=== PATIENT | male | born 1940 | race Two or more races ===

== ENCOUNTER 2022-06-29 16:06 | Emergency (ER) | payer OTHER ==
[~2022-06-29] VITALS: Ht 152.4 cm; Wt 70.3 kg
[2022-06-29 16:41] VITALS: BP 126/86
[2022-06-29 17:18] LABS: Basophils # (auto) 0 10 ^3/uL (0-0.2); Eosinophils # (auto) 0 10 ^3/uL (0-0.8); Eosinophils % (auto) 0.2 % (0.0-7.0); Lymphocytes # (auto) 0.7 10 ^3/uL (0.4-5.4); Monocytes # (auto) 0.6 10 ^3/uL (0-1.3)
[2022-06-29 17:19] LABS: Basophils % (auto) 0.2 % (0.0-2.0); Hematocrit 45.2 % (41.0-53.0); Mean Corpuscular Hemoglobin 34.3 pg (28.0-32.0); Mean Corpuscular Hgb Conc. 33.3 g/dL (32.0-36.0); Mean Corpuscular Volume 102.9 fL (80.0-100.0); Monocytes % (auto) 8.2 % (0.0-12.0); Neutrophils # (auto) 5.7 10 ^3/uL (1.6-8.6); Neutrophils % (auto) 81.4 % (37.0-80.0); Red Blood Cells 4.39 10^6/uL (4.5-5.90); Red Cell Distribution Width 13.7 % (11.8-14.3)
[2022-06-29 17:31] LABS: Urine Bacteria NONE SEEN /hpf (None Seen); Urine Blood Negative /uL (Negative); Urine Mucus FEW (None Seen); Urine Specific Gravity 1.032 (1.001-1.035); Urine WBC 6 /hpf (0 - 3)
[2022-06-29 17:41] LABS: Albumin 4.1 g/dL (3.4-5.0); Calcium 9.4 mg/dL (8.5-10.1); Potassium 3.7 mmol/L (3.5-5.1)
[2022-06-29 17:43] LABS: BUN/Creatinine Ratio 22.9
[2022-06-29 17:46] LABS: Bilirubin, Total 1.6 mg/dL (0.2-1.0); Total Protein 8.7 g/dL (6.4-8.2)
== END 2022-06-30 03:42 | disposition left against medical advice (07) ==
LOC: ER 16:06
DX: R10.9 Unspecified abdominal pain (principal); R11.2 Nausea with vomiting, unspecified; Z53.21 Procedure and treatment not carried out due to patient leaving prior to being seen by health care provider
CPT/HCPCS: 36415; 80053; 81001; 85025; 93005

== ENCOUNTER 2025-01-13 10:21 | Inpatient (IN) | payer OTHER, MEDICAID ==
[~2025-01-13] VITALS: Ht 160 cm; Wt 67.3 kg
--- NOTE | 2025-01-13 13:23 | DVH ---
Procedure: CT HEAD WITHOUT CONTRAST Study Date and Requested Time: 01/13/2025 12:46 PM History: fall 5 days ago Comparison: None Dose: CTDI: 54.6 mGy DLP: 966.84 mGycm Technique: Multiplanar images obtained through the brain without intravenous contrast. Findings: Ognq-ud-havnrrkb diffuse brain atrophy. Yhjy-kf-krktmuwu chronic small vessel ischemic changes. 4 mm hypodensity over the right caudate head No hemorrhages, masses, mass effect, midline shift, herniation or cytotoxic edema following a large v ascular territory. No intra-axial or extra-axial fluid collections. No evidence of hydrocephalus. The basal cisterns are patent. The pituitary gland, sella and parasellar regions are unremarkable. The cerebellar tonsils are in nor mal position. The cerebellum is unremarkable. Right ocular postsurgical changes and bilateral lens replacement. Otherwise, orbits and globes are u nremarkable. There is mucoperiosteal thickening of the inferior frontal sinuses, ethmoid air cells, s phenoid sinuses and mastoid sinuses. The mastoids are clear. There are no worrisome calvarial lesion s. Moderate atherosclerotic calcification of the carotid siphons. Impression: 4 mm hypodensity over the right caudate head which may represent lacunar infarct of unknown chronicit y. If there is concern for acute infarct, MRI should be considered for further evaluation. No intracranial hemorrhage. Mild pansinus disease.
[2025-01-13 13:54] LABS: Basophils # (auto) 0 10 ^3/uL (0-0.2); Basophils % (auto) 0.5 % (0.0-2.0); Hematocrit 36.8 % (41.0-53.0); Hemoglobin 12.6 g/dL (13.5-17.5); Monocytes # (auto) 0.4 10 ^3/uL (0-1.3); Nucleated Red Blood Cells % 0.1 %; Red Cell Distribution Width 13.7 % (11.8-14.3); White Blood Cell 4.6 10^3/uL (4.4-10.8)
[2025-01-13 13:57] LABS: Eosinophils # (auto) 0.1 10 ^3/uL (0-0.8); Lymphocytes % (auto) 22.3 % (10.0-50.0); Mean Corpuscular Hemoglobin 35.1 pg (28.0-32.0); Mean Corpuscular Hgb Conc. 34.3 g/dL (32.0-36.0); Mean Corpuscular Volume 102.2 fL (80.0-100.0); Monocytes % (auto) 8.4 % (0.0-12.0); Neutrophils % (auto) 65.8 % (37.0-80.0); Platelet Count (auto) 173 10^3/uL (140-450)
[2025-01-13 14:09] LABS: Alanine Aminotransferase 15 U/L (7-40); Albumin 4.1 g/dL (3.2-4.8); Alkaline Phosphatase 72 U/L (46-116); Anion Gap 8 (5-15); Aspartate Aminotransferase 21 U/L (13-40); BUN/Creatinine Ratio 25.8 (10.0-20.0); Calcium 9.3 mg/dL (8.7-10.4); Carbon Dioxide 27 mmol/L (20-31); Chloride 106 mmol/L (98-107); Glucose 101 mg/dL (74-106); Potassium 4.6 mmol/L (3.5-5.1); Sodium 141 mmol/L (136-145); Total Protein 7.2 g/dL (5.7-8.2)
[2025-01-13 14:10] LABS: Bilirubin, Total 0.8 mg/dL (0.2-1.0)
[2025-01-13 14:14] LABS: Blood Urea Nitrogen 24 mg/dL (9-23)
--- NOTE | 2025-01-13 14:40 | ED.PDOC ---
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 Denies persistent nausea Denies vomiting Denies taking any blood thinner medication Denies vision/hearing changes Denies focal loss of strength/sensation or changes in speech Chief Complaint: Head Injury Time Seen by MD: 10:41 Primary Care Provider: NONE Reviewed Notes: Nurses Notes, Medications, Allergies Information Source: Patient Mode of Arrival: Ambulatory Past Medical History PAST MEDICAL HISTORY: Denies Family History Family History: Reviewed,noncontributory to illness Social History Smoker: Non-Smoker Alcohol: Denies ETOH Use Drugs: Denies Drug Use All Other Systems: Reviewed and Negative (per hpi) Physical Exam General Appearance: No Apparent Distress, Normal HEENT: Head (Normocephalic atraumatic), Normal ENT Inspection, Pharynx Normal, TMs Normal Neck: Full Range of Motion, Non-Tender, Normal, Normal Inspection Respiratory: Chest Non-Tender, Lungs Clear, No Accessory Muscle Use, No Respiratory Distress, Normal Breath Sounds Cardiovascular: No Edema, No JVD, No Murmur, No Gallop, Normal Peripheral Pulses, Regular Rate/Rhythm Breast Exam: Deferred Gastrointestinal: No Organomegaly, Non Tender, No Pulsatile Mass, Normal Bowel Sounds, Soft Genitalia: Deferred Pelvic: Deferred Rectal: Deferred Extremities: No calf tenderness, Normal capillary refill, Normal inspection, Normal range of motion, Non-tender, No pedal edema Musculoskeletal : Apperance: Normal Neurologic: Alert, pourer buggy ladle II-XII nml as Tested, No Motor Deficits, Normal Affect, Normal Mood, No Sensory Deficits Cerebellar Function: Normal Reflexes: Normal Skin: Dry, Normal Color, Warm Lymphatic: No Adenopathy Was a procedure done? Was a procedure done?: No Differential Diagnosis (SZ) Headache: Closed Head Injury, Mass Lesion, Other X-Ray, Labs, Meds, VS Vital Signs Date Time Temp Pulse Resp B/P (MAP) Pulse Ox O2 Delivery O2 Flow Rate FiO2 01/13/25 12:21 97.8 78 16 130/73 (92) 94 97.8 01/13/25 12:20 125 16 95 Room Air 01/13/25 10:31 97.6 78 16 130/73 (92) 94 97.6 Lab Test 01/13/25 14:40 01/13/25 13:45 Range/Units Troponin I High Sensitivity 5 5 </=54 ng/L Triglycerides Level 76 < 150 mg/dL Cholesterol Level 165 < 200 mg/dL LDL Cholesterol 106 H < 100 mg/dL HDL Cholesterol 48 40-59 mg/dL White Blood Count 4.6 4.4-10.8 10^3/uL Red Blood Count 3.60 L 4.5-5.90 10^6/uL Hemoglobin 12.6 L 13.5-17.5 g/dL Hematocrit 36.8 L 41.0-53.0 % Mean Corpuscular Volume 102.2 H 80.0-100.0 fL Mean Corpuscular Hemoglobin 35.1 H 28.0-32.0 pg Mean Corpuscular Hemoglobin Concent 34.3 32.0-36.0 g/dL Red Cell Distribution Width 13.7 11.8-14.3 % Platelet Count 173 140-450 10^3/uL Mean Platelet Volume 6.6 L 6.9-10.8 fL Neutrophils (%) (Auto) 65.8 37.0-80.0 % Lymphocytes (%) (Auto) 22.3 10.0-50.0 % Monocytes (%) (Auto) 8.4 0.0-12.0 % Eosinophils (%) (Auto) 3.0 0.0-7.0 % Basophils (%) (Auto) 0.5 0.0-2.0 % Neutrophils # (Auto) 3.0 1.6-8.6 10 ^3/uL Lymphocytes # (Auto) 1.0 0.4-5.4 10 ^3/uL Monocytes # (Auto) 0.4 0-1.3 10 ^3/uL Eosinophils # (Auto) 0.1 0-0.8 10 ^3/uL Basophils # (Auto) 0 0-0.2 10 ^3/uL Nucleated Red Blood Cells 0.1 % Sodium Level 141 136-145 mmol/L Potassium Level 4.6 3.5-5.1 mmol/L Chloride Level 106 98-107 mmol/L Carbon Dioxide Level 27 20-31 mmol/L Anion Gap 8 5-15 Blood Urea Nitrogen 24 H 9-23 mg/dL Creatinine 0.93 0.700-1.30 mg/dL Glomerular Filtration Rate Calc 80 >90 mL/min BUN/Creatinine Ratio 25.8 H 10.0-20.0 Serum Glucose 101 74-106 mg/dL Calcium Level 9.3 8.7-10.4 mg/dL Total Bilirubin 0.8 0.2-1.0 mg/dL Aspartate Amino Transferase (AST) 21 13-40 U/L Alanine Aminotransferase (ALT) 15 7-40 U/L Alkaline Phosphatase 72 46-116 U/L Total Protein 7.2 5.7-8.2 g/dL Albumin 4.1 3.2-4.8 g/dL PATIENT: CHIQUITA BROWNOACCT: [id number]: [id number] : 1940 LOC: ER ROOM / BED: / AGE / SEX: 84 / M ADM STATUS: REG ER SERVICE 1245 ORDERING PHYSICIAN: BARAK HUNT NP PROCEDURE(s): HWOCT - HEAD WITHOUT CONTRAST REASON: fall 5 days ago ORDER NUMBER(s): [id number], ACCESSION NUMBER(s): [id number] Procedure: CT HEAD WITHOUT CONTRAST Study Date and Requested Time: 01/13/2025 12:46 PM History: fall 5 days ago Comparison: None Dose: CTDI: 54.6 mGy DLP: 966.84 mGycm Technique: Multiplanar images obtained through the brain without intravenous contrast. Findings: Mttt-sb-icyrirjn diffuse brain atrophy. Zuxg-vb-wrobagjb chronic small vessel ischemic changes. 4 mm hypodensity over the right caudate head No hemorrhages, masses, mass effect, midline shift, herniation or cytotoxic edema following a large vascular territory. No intra-axial or extra-axial fluid collections. No evidence of hydrocephalus. The basal cisterns are patent. The pituitary gland, sella and parasellar regions are unremarkable. The cerebellar tonsils are in normal position. The cerebellum is unremarkable. Right ocular postsurgical changes and bilateral lens replacement. Otherwise, orbits and globes are unremarkable. There is mucoperiosteal thickening of the inferior frontal sinuses, ethmoid air cells, sphenoid sinuses and mastoid sinuses. The mastoids are clear. There are no worrisome calvarial lesions. Moderate atherosclerotic calcification of the carotid siphons. Impression: 4 mm hypodensity over the right caudate head which may represent lacunar infarct of unknown chronicity. If there is concern for acute infarct, MRI should be considered for further evaluation. No intracranial hemorrhage. Mild pansinus disease. ATED BY: JULIANNE GREEN DO DICTATED DATE/TIME: 01/13/25 1320 SIGNED BY: JULIANNE GREEN DO SIGNED DATE/TIME: 01/13/251319 CC: X-Ray, Labs, Meds, VS Comment The patient presents with s/s consistent with symptoms which may represent lacunar infarct of unknown chronicity The patient's workup reveals that the patient needs further evaluation and/or treatment for the above medical conditions. Patient verbalized understanding of the above and is awaiting further evaluation by the admitting service. Impression: 4 mm hypodensity over the right caudate head which may represent lacunar infarct of unknown chronicity. If there is concern for acute infarct, MRI should be considered for further evaluation. No intracranial hemorrhage. Labs ordered and WBC within normal limits, hemoglobin 12.6, lymphocytes reassuring, creatinine within normal limits, EGFR 80, serum glucose 101, AST ALT reassuring, troponin 5 pending 2nd trop. EKG: SR, RBB, inferior infarct, age indeterminate Time of 1ST Reevaluation: 14:38 Reevaluation 1ST: Improved Patient Education/Counseling: Diagnosis, Treatment Family Education/Counseling: Diagnosis, Treatment Departure 1 Departure Time of Disposition: 14:40 Impression: Primary Impression: Lacunar infarction Additional Impression: Right bundle branch block (RBBB) Disposition: 09 ADMITTED INPATIENT Condition: Guarded e-Prescriptions No Active Prescriptions or Reported Meds Critical Care Note Critical Care Time?: No Stability Stability form required: No Heart Score Heart Score: Heart Score Response (Comments) Value History N/A 0 EKG N/A 0 Age N/A 0 Risk Factors N/A 0 Troponin N/A 0 Total 0 BARAK HUNT NP Jan 13, 2025 14:40
[2025-01-13] MEDS ORDERED: HYDROcodone-ACET 5/325MG TAB PO PRN (16:15)
[2025-01-13] MEDS ORDERED: MORPHINE SULFATE INJ 2 MG/ml SYRG IV PRN (16:15)
[2025-01-13] MEDS ORDERED: DOCUSATE SOD 100 MG CAP PO PRN (16:15)
[2025-01-13] MEDS ORDERED: ACETAMINOPHEN 325 MG TAB PO PRN (16:15)
[2025-01-13] MEDS ORDERED: ONDANSETRON HCL 4 MG/2 ML VIAL IV PRN (16:15)
[2025-01-13] MEDS ORDERED: NITROGLYCERIN 0.4 MG SL TAB SL PRN (16:15)
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
[2025-01-13] MEDS: ASPirin 81 mg TAB PO ONE (17:25)
--- NOTE | 2025-01-13 17:47 | DVH ---
EXAMINATION: MRI BRAIN HEAD WO CONTRAST INDICATION: Lacunar infarction COMPARISON: None TECHNIQUE: Multiplanar, multisequence magnetic resonance imaging of the brain was performed without the use of i ntravenous contrast. FINDINGS: There is generalized cortical atrophy. There is no evidence for an acute infarct. However there is increased signal on diffusion-weighted imaging in the cortical spinal tracts which i s nonspecific but is seen in cases of ALS. There are generalized degenerative changes increased perivascular spaces Internal auditory canals and mastoid air cells are normal. There is sinus disease involving the maxi llary sinuses in the ethmoid air cells to a lesser extent frontal air cells. There are no midline shifts or focal mass effects there is evidence for nonspecific white matter dise ase involving the centrum semiovale bilaterally. I do not see evidence for an acute lacunar infarct hippocampal structures are symmetric. IMPRESSION: Generalized cortical atrophy and also generalized nonspecific white matter disease.There is also evid ence for Increased signal on diffusion-weighted imaging involving the cortical spinal tracts which is nonspeci fic finding but is seen in cases of ALS. Is not specific to ALS however. There is sinus disease involving the maxillary and ethmoid sinuses.
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
[2025-01-13] MEDS: SODIUM CHLOR 0.9% PF (SALINE LOCK) 10ML VIAL/SYR IV SCH (22:00)
[2025-01-13 22:32] LABS: Triglycerides 76 mg/dL (< 150)
[2025-01-13 22:33] LABS: LDL Cholesterol 106 mg/dL (< 100)
[2025-01-13 22:34] LABS: Cholesterol 165 mg/dL (< 200); HDL Cholesterol 48 mg/dL (40-59)
[2025-01-13 22:40] VITALS: BP 142/74; PULSE 62; RESP 16; RESP 18; TEMP 98.3; O2SAT 98
--- NOTE | 2025-01-13 22:50 | DVH ---
Carotid Duplex Clinical History: CVA Comparison: None Technique: Duplex Doppler evaluation of the extracranial carotid and vertebral arteries including color Doppler and spectral/pulsed waveform analysis was performed. Findings: RIGHT SIDE: No significant plaque noted. The peak systolic velocities are 62 cm/s in the CCA, 79 cm/s in the ICA. The ICA/CCA ratio is 1.3. The external carotid artery is patent with peak systolic velocity of 82 cm/s proximally. There is appropriate antegrade flow in the right vertebral artery. LEFT SIDE: No significant plaque noted. The peak systolic velocities are 71 cm/s in the CCA, 96 cm/s in the ICA. The ICA/CCA ratio is 1.4. The external carotid artery is patent with peak systolic velocity of 96 cm/s proximally. There is appropriate antegrade flow in the left vertebral artery. IMPRESSION: No evidence of hemodynamically significant carotid stenosis. Reference: Radiology 2003; 229:340-346 Normal ICA PSV is <125 cm/sec and no plaque or intimal thickening is visible sonographically additional criteria include ICA/CCA PSV ratio <2.0 and ICA EDV <40 cm/sec <50% ICA stenosis ICA PSV is <125 cm/sec and plaque or intimal thickening is visible sonographically additional criteria include ICA/CCA PSV ratio <2.0 and ICA EDV <40 cm/sec 50-69% ICA stenosis ICA PSV is 125-230 cm/sec and plaque is visible sonographically additional criteria include ICA/CCA PSV ratio of 2.0-4.0 and ICA EDV of 40-100 cm/sec 70% ICA stenosis but less than near occlusion ICA PSV is >230 cm/sec and visible plaque and luminal narrowing are seen at barney-scale and color Dopp ler ultrasound (the higher the Doppler parameters lie above the threshold of 230 cm/sec, the greater the likelihood of severe disease) additional criteria include ICA/CCA PSV ratio >4 and ICA EDV >100 cm/sec
[2025-01-14] VITALS (8 sets, daily range): BP systolic 126–145; BP diastolic 71–83; PULSE 56–76; RESP 14–18; TEMP 97.4–98.1; O2SAT 97–99
[2025-01-14 08:34] LABS: Basophils # (auto) 0 10 ^3/uL (0-0.2); Basophils % (auto) 0.3 % (0.0-2.0); Eosinophils # (auto) 0.2 10 ^3/uL (0-0.8); Eosinophils % (auto) 3.9 % (0.0-7.0); Hematocrit 35.3 % (41.0-53.0); Hemoglobin 12.1 g/dL (13.5-17.5); Lymphocytes # (auto) 0.9 10 ^3/uL (0.4-5.4); Lymphocytes % (auto) 17.7 % (10.0-50.0); Mean Corpuscular Hemoglobin 35.1 pg (28.0-32.0); Mean Corpuscular Hgb Conc. 34.3 g/dL (32.0-36.0); Mean Corpuscular Volume 102.3 fL (80.0-100.0); Monocytes # (auto) 0.5 10 ^3/uL (0-1.3); Monocytes % (auto) 8.8 % (0.0-12.0); Neutrophils # (auto) 3.7 10 ^3/uL (1.6-8.6); Neutrophils % (auto) 69.3 % (37.0-80.0); Platelet Count (auto) 163 10^3/uL (140-450); Red Blood Cells 3.45 10^6/uL (4.5-5.90); Red Cell Distribution Width 13.8 % (11.8-14.3); White Blood Cell 5.3 10^3/uL (4.4-10.8)
[2025-01-14 08:55] LABS: Alanine Aminotransferase 10 U/L (7-40); Albumin 3.9 g/dL (3.2-4.8); Alkaline Phosphatase 63 U/L (46-116); Anion Gap 9 (5-15); Aspartate Aminotransferase 16 U/L (13-40); BUN/Creatinine Ratio 25.6 (10.0-20.0); Calcium 9.2 mg/dL (8.7-10.4); Carbon Dioxide 25 mmol/L (20-31); Glucose 94 mg/dL (74-106); Potassium 4.1 mmol/L (3.5-5.1); Sodium 141 mmol/L (136-145); Total Protein 6.8 g/dL (5.7-8.2)
[2025-01-14 08:57] LABS: Blood Urea Nitrogen 23 mg/dL (9-23); Chloride 107 mmol/L (98-107)
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
[2025-01-14] MEDS: ASPirin 81 mg TAB PO SCH (11:14)
--- NOTE | 2025-01-14 12:16 | DVH ---
EXAM: XY R FOOT 3 VIEW XRAY DATE OF SERVICE: 01/14/2025 10:59 AM ORDERING PHYSICIAN: KIMANI CHRISTIAN REASON FOR EXAM: swelling TECHNIQUE: 3 views of the right foot COMPARISON: None FINDINGS: Dorsal forefoot soft tissue swelling. No radiographic evidence of the acute fracture. Smal l plantar calcaneal spur. IMPRESSION: 1. No radiographic evidence of an acute osseous abnormality. End of Report
--- NOTE | 2025-01-14 13:07 | DVH ---
EXAM: XY R ANKLE 3 VIEW CLINICAL INDICATION: swelling TECHNIQUE: XY R ANKLE 3 VIEW Comparison: None FINDINGS/IMPRESSION: There is no evidence of acute fracture or dislocation. Soft tissue swelling overlying the malleoli The alignment is anatomical. There is no radiopaque foreign body.
[2025-01-14] MEDS: ATORVASTATIN 20 MG TAB PO SCH (21:18)
--- NOTE | 2025-01-14 23:25 | DVHPN2 ---
Progress Note - Dictate Date Seen: Jan 14, 2025 Medical Necessity Reason Pt with a Central, PICC or Fol: No Subjective is a 84 years old right-handed gentleman with a history of right eye blindness, left eye glaucoma, he came to the hospital with a chief complaint of headache, status post fall. I have seen and examined the patient, talked to his nurse, the patient was doing fine, no new complaints At this time, he is alert and fully oriented, he and his son provided the following history About 1.5 weeks ago, when he was walking along side walk, he fell down to the dirt, and bumped his head, without loss of consciousness, he was able to get up and returned home, and since then he has constant nonprogressive pain in the right parietal/occipital head region. He denies new focal weakness numbness He was no history of stroke/focal weakness numbness, but his CT showed evidence of right caudate nuclear chronic infarct, I saw evidence suggestive of chronic lacunar stroke in the same area WBC/HB/PLT/MCV, 01/13/2025: 4.6/12.6/173/102 CMP, 01/13/2025: Unremarkable TG/HDL/LDL/HDL, 01/13/2025: 76/165/106/49 Carotid Doppler, 01/13/25: No evidence of hemodynamically significant carotid stenosis CT head, 01/13/2025: 4 mm hypodensity over the right caudate head which may represent lacunar infarct of unknown chronicity. If there is concern for acute infarct, MRI should be considered for further evaluation. No intracranial hemorrhage. Mild pansinus disease. MRI head, 01/13/2025: Generalized cortical atrophy and also generalized nonspecific white matter disease.There is also evidence for Increased signal on diffusion-weighted imaging involving the cortical spinal tracts which is nonspecific finding but is seen in cases of ALS. Is not specific to ALS however. There is sinus disease involving the maxillary and ethmoid sinuses vital signs Vital Sign Date Time Temp Pulse Resp B/P (MAP) Pulse Ox O2 Delivery O2 Flow Rate FiO2 01/14/25 21:00 97.8 69 17 141/76 (97) 97 97.8 01/14/25 08:00 Room Air* 0 21 Total Intake and Output 01/13/25 01/13/25 01/14/25 15:00 23:00 07:00 Intake Total 220 ml Output Total 400 ml Balance -180 ml medications Current Medications Medications Dose Ordered Sig/Chaitanya Route Start Time Stop Time Status Last Admin Dose Admin Sodium Chloride 10 ml Q8HR IV 01/13/25 22:00 01/14/25 21:18 10 ML Acetaminophen/ Hydrocodone Bitart 1 tab Q4HP PRN PO 01/13/25 16:15 Ondansetron HCl 4 mg Q4HP PRN IV 01/13/25 16:15 Docusate Sodium 100 mg BIDPRN PRN PO 01/13/25 16:15 Acetaminophen 650 mg Q6HP PRN PO 01/13/25 16:15 Nitroglycerin 0.4 mg Q5MINP PRN SL 01/13/25 16:15 Morphine Sulfate 2 mg Q30M PRN IV 01/13/25 16:15 Aspirin 81 mg DAILY PO 01/14/25 10:00 01/14/25 11:14 81 MG Atorvastatin Calcium 10 mg HS PO 01/14/25 22:00 01/14/25 21:18 10 MG objective General: the patient is well developed and nourished. No acute distress. MENTAL STATUS: Awake and alert. Oriented to person, place, time and general circumstances. Able to give personal history. SPEECH, LANGUAGE, HIGHER CORTICAL FUNCTION: no aphasia or dysathria. CRANIAL NERVES: Intact visual parikh to confrontation. He can see a little bit lights through the right eye. Pupils leftl, round and reactive. Right corneal is cloudy. EOMs full and conjugate. No nystagmus. Facial sensation intact in all three divisions bilaterally. Mandibular strength intact. Facial muscles symmetrical and strength intact. SENSATION: Sensation to touch and pinprick is normal. MOTOR: Normal tone in the upper and lower extremity. Normal muscle bulk. No fasciculations. No abnormal movements or posturing. Muscle strength of the major groups in the extremities is 5/5. REFLEXES: Deep tendon reflexes are symmetrical. No pathological reflexes. CEREBELLAR/COORDINATION: Finger to nose ais normal bilaterally. GAIT/STATION: deferred laboratory and microbiology Laboratory Tests 01/14/25 07:28 Test 01/14/25 07:28 Range/Units Serum Glucose 94 74-106 mg/dL Problem List Chronic asymptomatic lacunar infarct Headache secondary to head trauma Fall Right eye blindness Assessment/Plan Monitoring Supportive treatment Telemetry Echocardiogram Aspirin 81 mg daily Lipitor 20 mg daily Up to chair Physical therapy This medical document was created using an electronic medical record system with [employer] computerized dictation system. Although this document has been carefully reviewed, there may still be some phonetic and typographical errors. These areas are purely typographical due to imperfections of the software programs, and do not reflect any compromise in the patient's medical care. Prognosis poor Plan discussed with: Patient, Other CANDACE ROMERO MD Jan 14, 2025 23:25
[2025-01-15] VITALS (8 sets, daily range): BP systolic 102–131; BP diastolic 64–75; PULSE 55–80; RESP 17–19; TEMP 97.8–98.8; O2SAT 97–99
--- NOTE | 2025-01-15 08:47 | ECG ---
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
[2025-01-15] MEDS ORDERED: guaiFENesin-DM 100/10mg/5ml SYR PO PRN (10:15)
--- NOTE | 2025-01-15 10:20 | DVHPN2 ---
Subjective He complains of dry cough today He said he had it for 3 days No other complaints The echocardiogram is still pending Changes from previous H/P or p: Changes Eyes: No Pain, No Vision change, No Conjunctivae inflammation, No Eyelid inflammation, No Other, No Redness ENT: No Ear pain, No Ear discharge, No Nose pain, No Nose discharge, No Nose congestion, No Mouth pain, No Mouth swelling, No Throat pain, No Throat swelling, No Other Cardiovascular: No Chest Pain, No Palpitations, No Orthopnea, No Paroxysmal Noc. Dyspnea, No Edema, No Lt Headedness, No Other Respiratory: No Cough, No Dry, No Shortness of breath, No SOB with excertion, No Wheezing, No Hemoptysis, No Pleuritic Pain, No Sputum, No Other Gastrointestinal: No Nausea, No Vomiting, No Abdominal Pain, No Diarrhea, No Constipation, No Melena, No Hematochezia, No Other Genitourinary: No Dysuria, No Frequency, No Incontinence, No Hematuria, No Retention, No Other Musculoskeletal: No other, No neck pain, No shoulder pain, No arm pain, No back pain, No hand pain, No leg pain, No foot pain Skin: No Rash, No Lesions, No Jaundice, No Bruising, No Other Objective Vitals Vital Signs Date Time Temp Pulse Resp B/P (MAP) Pulse Ox O2 Delivery O2 Flow Rate FiO2 01/15/25 08:32 98.8 55 19 124/71 (88) 98 98.8 01/14/25 20:00 Room Air* 0 21 Intake/Output Intake and Output 01/15/25 07:00 Intake Total 1570 ml Output Total 300 ml Balance 1270 ml Intake Oral 1570 ml Output Urine Total 300 ml # Voids 5 # Bowel Movements 1 General Appearance: Alert, Oriented X3, Cooperative Lungs: Clear to auscultation, Normal air movement Cardiovascular: Regular rate, Normal S1, Normal S2 Abdomen: Normal bowel sounds, Soft, No tenderness Extremities: No edema Medications Current Medications Medications Dose Ordered Sig/Chaitanya Route Start Time Stop Time Status Last Admin Dose Admin Sodium Chloride 10 ml Q8HR IV 01/13/25 22:00 01/15/25 05:30 10 ML Acetaminophen/ Hydrocodone Bitart 1 tab Q4HP PRN PO 01/13/25 16:15 Ondansetron HCl 4 mg Q4HP PRN IV 01/13/25 16:15 Docusate Sodium 100 mg BIDPRN PRN PO 01/13/25 16:15 Acetaminophen 650 mg Q6HP PRN PO 01/13/25 16:15 Nitroglycerin 0.4 mg Q5MINP PRN SL 01/13/25 16:15 Morphine Sulfate 2 mg Q30M PRN IV 01/13/25 16:15 Aspirin 81 mg DAILY PO 01/14/25 10:00 01/15/25 10:03 81 MG Atorvastatin Calcium 10 mg HS PO 01/14/25 22:00 01/14/25 21:18 10 MG Guaifenesin/ Dextromethorphan 10 ml Q4HP PRN PO 01/15/25 10:15 UNV Laboratory Results Laboratory Tests 01/14/25 07:28 Assessment/Plan Assessment/Plan Chronic asymptomatic lacunar infarct Headache due to head trauma Status post a fall Right eye blindness Right ankle swelling Plan Aspirin Lipitor Echocardiogram is pending MRI showed no stroke Carotid Doppler is negative Neurology consult Physical therapy evaluation X-ray of the right ankle ankle x-ray three-view Monitor closely 01/15/2025: Old stroke: Continue aspirin 81 mg a day Dyslipidemia: Lipitor 10 mg daily Status post fall and headache Right eye blindness, old Bilateral lower extremity edema right more than left, rule out CHF, echo is pending Workup with the MRI and carotid Doppler was negative Cough: Check chest x-ray and influenza and COVID Check BNP Plan discussed with: Patient My Orders Orders - KIMANI CHRISTIAN MD Procedure Category Date Status Time R Foot 3 View Xray XY 01/14/25 Resulted 10:38 R Ankle 3 View XY 01/14/25 Resulted 10:40 Pt Request For Service PT 01/14/25 Logged 10:51 Guaifenesin-Dextromet PHA 01/15/25 Logged Liquid (Robitussin 10:15 Chest Portable XY 01/15/25 Verified 10:16 Covid19 Antigen [facility] 01/15/25 Verified Rapid Influenza A&B LAB 01/15/25 Verified 10:16 Date of Service: Jan 15, 2025 Billing Provider: KIMANI CHRISTIAN MD Common Visit Codes: NOT BILLABLE KIMANI CHRISTIAN MD Jan 15, 2025 10:20
--- NOTE | 2025-01-15 11:43 | DVH ---
INDICATION: cough TECHNIQUE: Frontal view of the chest. COMPARISON: None FINDINGS: . The heart and mediastinal contours are grossly unremarkable. There is no evidence of pleural disea se. The lungs are clear. The bony structures of the chest are intact without fracture. IMPRESSION: 1. No evidence of acute disease.
[2025-01-15 12:43] LABS: COVID19 ANTIGEN SOFIA FIA NEGATIVE (NEGATIVE); Rapid Influenza A Negative (Negative); Rapid Influenza B Negative (Negative)
--- NOTE | 2025-01-15 16:10 | DVHINCON2 ---
Date Seen: Jan 15, 2025 Referring Physician MD Carmencita Reason for Consultation Edema History of Present Illness This is a pleasant Korean-speaking 84-year-old male patient who presents to emergency room status post mechanical fall. The patient reports he was walking in the street and suddenly tripped and fell, hitting his head. Initially, he did not go to the emergency room. The patient reports waiting two days before being evaluated. Cardiology has been consulted at this time for edema. Initial twelve lead electrocardiogram reveals normal sinus rhythm with right branch block and artifact. The patient denies any cardiac symptoms. Initial troponin level was negative. Initial BNP level of 58.76pg/mL. Significant past medical history includes right eye blindness. The patient denies any other history. The patient mentions that he has experienced bilateral lower extremity edema for the last 12 years. Past Medical History Past medical history reviewed. No other significant than mentioned above. Past Surgical History Right eye corneal transplant Family History: Patient reports no known family medical history. Family History Family history reviewed. Social History Denies the use of tobacco, alcohol or illicit drugs. Allergies: Coded Allergies: NO KNOWN ALLERGIES (Unverified , 01/13/25) Home Meds No Active Prescriptions or Reported Meds Home Meds Denies taking any prescribed medications Current Medications Current Medications Medications (Trade) Dose Ordered Sig/Chaitanya Route PRN Reason Start Time Stop Time Status Last Admin Atorvastatin Calcium (Lipitor) 10 mg HS PO 01/14/25 22:00 01/14/25 21:18 Guaifenesin/ Dextromethorphan (Robitussin-Dm Liquid) 10 ml Q4HP PRN PO FOR COUGH 01/15/25 10:15 Review of Systems Constitutional: No symptom reported Ears, Nose, & Throat: No symptom reported Eyes: No symptom reported Neurological: No symptoms reported Pulmonary/Respiratory: No symptoms reported Cardiovascular: No symptom reported Gastrointestinal: No symptom reported Genitourinary: No symptom reported Musculoskeletal: Pain to right side of head Skin: No symptom reported Psychiatric: No symptom reported Endocrine: No symptom reported Hematologic/Lymphatic: No symptom reported Vital Signs Vital Signs Date Time Temp Pulse Resp B/P (MAP) Pulse Ox O2 Delivery O2 Flow Rate FiO2 01/15/25 12:56 98.1 66 18 131/71 (91) 97 98.1 01/15/25 08:00 Room Air* 0 21 Physical Exam General Appearance: Cooperative. Well-developed. Well-nourished. No acute distress. Pulmonary/Respiratory: Clear, bilateral breaths sounds. Cardiovascular/Chest: Regular rate and rhythm. Peripheral Pulses: 2+ Radial (R). 2+ Radial (L). 2+ Pedal (R). 2+ Pedal (L) Abdominal Exam: Normal bowel sounds. Ankle Exam: Nonpitting bilateral ankle edema Lower extremities: Nonpitting bilateral lower extremity, right greater than left Neuro/Mental Status: A/OX4, coherent. Thoughts/Psych: Normal thought pattern. Appropriate mood and affect. Good judgment and insight. Appearance: No acute distress. Skin Exam: Normal inspection. Normal color. Warm and dry. Labs/Diagnostic Data Labs Test 01/15/25 11:45 01/15/25 10:32 01/14/25 07:28 01/13/25 14:40 Range/Units Influenza Type A Antigen Negative Negative Influenza Type B Antigen Negative Negative SARS-CoV-2 Antigen (Rapid) Negative NEGATIVE B-Type Natriuretic Peptide 58.76 0-100 pg/mL Thyroid Stimulating Hormone (TSH) 1.99 0.55-4.78 uIU/mL White Blood Count 5.3 4.4-10.8 10^3/uL Red Blood Count 3.45 L 4.5-5.90 10^6/uL Hemoglobin 12.1 L 13.5-17.5 g/dL Hematocrit 35.3 L 41.0-53.0 % Mean Corpuscular Volume 102.3 H 80.0-100.0 fL Mean Corpuscular Hemoglobin 35.1 H 28.0-32.0 pg Mean Corpuscular Hemoglobin Concent 34.3 32.0-36.0 g/dL Red Cell Distribution Width 13.8 11.8-14.3 % Platelet Count 163 140-450 10^3/uL Mean Platelet Volume 7.2 6.9-10.8 fL Neutrophils (%) (Auto) 69.3 37.0-80.0 % Lymphocytes (%) (Auto) 17.7 10.0-50.0 % Monocytes (%) (Auto) 8.8 0.0-12.0 % Eosinophils (%) (Auto) 3.9 0.0-7.0 % Basophils (%) (Auto) 0.3 0.0-2.0 % Neutrophils # (Auto) 3.7 1.6-8.6 10 ^3/uL Lymphocytes # (Auto) 0.9 0.4-5.4 10 ^3/uL Monocytes # (Auto) 0.5 0-1.3 10 ^3/uL Eosinophils # (Auto) 0.2 0-0.8 10 ^3/uL Basophils # (Auto) 0 0-0.2 10 ^3/uL Nucleated Red Blood Cells 0.0 % Sodium Level 141 136-145 mmol/L Potassium Level 4.1 3.5-5.1 mmol/L Chloride Level 107 98-107 mmol/L Carbon Dioxide Level 25 20-31 mmol/L Anion Gap 9 5-15 Blood Urea Nitrogen 23 9-23 mg/dL Creatinine 0.90 0.700-1.30 mg/dL Glomerular Filtration Rate Calc 84 >90 mL/min BUN/Creatinine Ratio 25.6 H 10.0-20.0 Serum Glucose 94 74-106 mg/dL Calcium Level 9.2 8.7-10.4 mg/dL Total Bilirubin 1.0 0.2-1.0 mg/dL Aspartate Amino Transferase (AST) 16 13-40 U/L Alanine Aminotransferase (ALT) 10 7-40 U/L Alkaline Phosphatase 63 46-116 U/L Total Protein 6.8 5.7-8.2 g/dL Albumin 3.9 3.2-4.8 g/dL Troponin I High Sensitivity 5 </=54 ng/L Triglycerides Level 76 < 150 mg/dL Cholesterol Level 165 < 200 mg/dL LDL Cholesterol 106 H < 100 mg/dL HDL Cholesterol 48 40-59 mg/dL Assessment Rule out structural heart disease Chronic asymptomatic lacunar infarct Status post mechanical fall Right eye blindness Plan/Recommendation We will continue with the following plan/recommendations (Dr. Bullock): We will proceed with obtaining a transthoracic echocardiogram to evaluate cardiac function. The patient reports he has been experiencing bilateral lower extremity edema for approximately 12 years. [place] heart failure diagnostic criteria: Negative. Patient remains euvolemic and denies any cardiac symptoms. In the setting of an unremarkable transthoracic echocardiogram, there is no further inpatient cardiac workup indicated. Consider other differential such as chronic lymphedema, deep vein thrombosis, chronic venous insufficiency, etc. Thank you for allowing us to care for this patient. Please call with any questions or concerns. Critical care time spent: 44 minutes This medical document was created using an electronic medical record system with voice recognition software and computerized dictation system. Although this document has been carefully reviewed, there might still be some phonetic and typographical errors. Occasional wrong-word or ``sound-alike substitutions may have occurred due to the inherent limitations of voice recognition software. These areas are purely typographical due to imperfections of the software programs and do not reflect any compromise in the patient's medical care. Please read the chart carefully and recognize, using context, where these substitutions have occurred. Plan discussed with: Patient NYHA Physical activity limitations: NA Date of Service: Jan 15, 2025 Billing Provider: SOFYA DEJESUS Cardiology Common Codes: 28392-EQOLLTU INP/OBS CARE (High) Cardiology Consultation Codes: 91167-[id number] CONSULT <45MIN SOFYA DEJESUS Jan 15, 2025 16:10
--- NOTE | 2025-01-15 21:34 | DVHPN2 ---
Progress Note - Dictate Date Seen: Jan 15, 2025 Medical Necessity Reason Pt with a Central, PICC or Fol: No Subjective is a 84 years old right-handed gentleman with a history of right eye blindness, left eye glaucoma, he came to the hospital with a chief complaint of headache, status post fall. I have seen and examined the patient, talked to his nurse, the patient was doing fine, no new complaints At this time, he is alert and fully oriented Echo report is pending WBC/HB/PLT/MCV, 01/13/2025: 4.6/12.6/173/102 CMP, 01/13/2025: Unremarkable TG/HDL/LDL/HDL, 01/13/2025: 76/165/106/49 Carotid Doppler, 01/13/25: No evidence of hemodynamically significant carotid stenosis CT head, 01/13/2025: 4 mm hypodensity over the right caudate head which may represent lacunar infarct of unknown chronicity. If there is concern for acute infarct, MRI should be considered for further evaluation. No intracranial hemorrhage. Mild pansinus disease. MRI head, 01/13/2025: Generalized cortical atrophy and also generalized nonspecific white matter disease.There is also evidence for Increased signal on diffusion-weighted imaging involving the cortical spinal tracts which is nonspecific finding but is seen in cases of ALS. Is not specific to ALS however. There is sinus disease involving the maxillary and ethmoid sinuses vital signs Vital Sign Date Time Temp Pulse Resp B/P (MAP) Pulse Ox O2 Delivery O2 Flow Rate FiO2 01/15/25 16:31 98.1 67 17 131/75 (93) 98 98.1 01/15/25 08:00 Room Air* 0 21 Total Intake and Output 01/14/25 01/14/25 01/15/25 15:00 23:00 07:00 Intake Total 230 ml 840 ml 500 ml Output Total 300 ml Balance 230 ml 540 ml 500 ml medications Current Medications Medications Dose Ordered Sig/Chaitanya Route Start Time Stop Time Status Last Admin Dose Admin Sodium Chloride 10 ml Q8HR IV 01/13/25 22:00 01/15/25 14:43 10 ML Acetaminophen/ Hydrocodone Bitart 1 tab Q4HP PRN PO 01/13/25 16:15 Ondansetron HCl 4 mg Q4HP PRN IV 01/13/25 16:15 Docusate Sodium 100 mg BIDPRN PRN PO 01/13/25 16:15 Acetaminophen 650 mg Q6HP PRN PO 01/13/25 16:15 Nitroglycerin 0.4 mg Q5MINP PRN SL 01/13/25 16:15 Morphine Sulfate 2 mg Q30M PRN IV 01/13/25 16:15 Aspirin 81 mg DAILY PO 01/14/25 10:00 01/15/25 10:03 81 MG Atorvastatin Calcium 10 mg HS PO 01/14/25 22:00 01/14/25 21:18 10 MG Guaifenesin/ Dextromethorphan 10 ml Q4HP PRN PO 01/15/25 10:15 objective General: the patient is well developed and nourished. No acute distress. MENTAL STATUS: Awake and alert. Oriented to person, place, time and general circumstances. Able to give personal history. SPEECH, LANGUAGE, HIGHER CORTICAL FUNCTION: no aphasia or dysathria. CRANIAL NERVES: Intact visual parikh to confrontation. He can see a little bit lights through the right eye. Pupils leftl, round and reactive. Right corneal is cloudy. EOMs full and conjugate. No nystagmus. Facial sensation intact in all three divisions bilaterally. Mandibular strength intact. Facial muscles symmetrical and strength intact. SENSATION: Sensation to touch and pinprick is normal. MOTOR: Normal tone in the upper and lower extremity. Normal muscle bulk. No fasciculations. No abnormal movements or posturing. Muscle strength of the major groups in the extremities is 5/5. REFLEXES: Deep tendon reflexes are symmetrical. No pathological reflexes. CEREBELLAR/COORDINATION: Finger to nose ais normal bilaterally. GAIT/STATION: deferred laboratory and microbiology Laboratory Tests 01/14/25 07:28 Test 01/14/25 07:28 Range/Units Serum Glucose 94 74-106 mg/dL Problem List Chronic asymptomatic lacunar infarct Headache secondary to head trauma Fall Right eye blindness Assessment/Plan Monitoring Supportive treatment Telemetry Echocardiogram Aspirin 81 mg daily Lipitor 20 mg daily Up to chair Physical therapy Okay to discharge if echo is unremarkable from a neurologic point of view This medical document was created using an electronic medical record system with [employer] system. Although this document has been carefully reviewed, there may still be some phonetic and typographical errors. These areas are purely typographical due to imperfections of the software programs, and do not reflect any compromise in the patient's medical care. Prognosis poor Plan discussed with: Other CANDACE ROMERO MD Jan 15, 2025 21:34
[2025-01-16 01:00] VITALS: BP 132/70; PULSE 59; RESP 17; TEMP 97.7; O2SAT 99
[2025-01-16 05:00] VITALS: BP 125/70; PULSE 57; RESP 17; TEMP 97.5; O2SAT 98
[2025-01-16 08:00] VITALS: PULSE 52; PULSE 56; RESP 16; O2SAT 95
[2025-01-16 08:40] VITALS: BP 111/60; PULSE 52; RESP 16; TEMP 97.4; O2SAT 95
[2025-01-16] MEDS ORDERED: ASPI1TAB20 PO (09:27)
[2025-01-16] MEDS ORDERED: ATOR20TA PO (09:27)
--- NOTE | 2025-01-16 09:31 | DVHDS2 ---
Discharge Summary Date of Admission Jan 13, 2025 at 16:14 Date of Discharge: Jan 16, 2025 Labs/Diagnostic Data: Laboratory Results Test 01/15/25 11:45 01/15/25 10:32 01/14/25 07:28 01/13/25 14:40 Influenza Type A Antigen Negative (Negative) Influenza Type B Antigen Negative (Negative) SARS-CoV-2 Antigen (Rapid) Negative (NEGATIVE) B-Type Natriuretic Peptide 58.76 pg/mL (0-100) Thyroid Stimulating Hormone (TSH) 1.99 uIU/mL (0.55-4.78) White Blood Count 5.3 10^3/uL (4.4-10.8) Red Blood Count 3.45 10^6/uL (4.5-5.90) Hemoglobin 12.1 g/dL (13.5-17.5) Hematocrit 35.3 % (41.0-53.0) Mean Corpuscular Volume 102.3 fL (80.0-100.0) Mean Corpuscular Hemoglobin 35.1 pg (28.0-32.0) Mean Corpuscular Hemoglobin Concent 34.3 g/dL (32.0-36.0) Red Cell Distribution Width 13.8 % (11.8-14.3) Platelet Count 163 10^3/uL (140-450) Mean Platelet Volume 7.2 fL (6.9-10.8) Neutrophils (%) (Auto) 69.3 % (37.0-80.0) Lymphocytes (%) (Auto) 17.7 % (10.0-50.0) Monocytes (%) (Auto) 8.8 % (0.0-12.0) Eosinophils (%) (Auto) 3.9 % (0.0-7.0) Basophils (%) (Auto) 0.3 % (0.0-2.0) Neutrophils # (Auto) 3.7 10 ^3/uL (1.6-8.6) Lymphocytes # (Auto) 0.9 10 ^3/uL (0.4-5.4) Monocytes # (Auto) 0.5 10 ^3/uL (0-1.3) Eosinophils # (Auto) 0.2 10 ^3/uL (0-0.8) Basophils # (Auto) 0 10 ^3/uL (0-0.2) Nucleated Red Blood Cells 0.0 % Sodium Level 141 mmol/L (136-145) Potassium Level 4.1 mmol/L (3.5-5.1) Chloride Level 107 mmol/L (98-107) Carbon Dioxide Level 25 mmol/L (20-31) Anion Gap 9 (5-15) Blood Urea Nitrogen 23 mg/dL (9-23) Creatinine 0.90 mg/dL (0.700-1.30) Glomerular Filtration Rate Calc 84 mL/min (>90) BUN/Creatinine Ratio 25.6 (10.0-20.0) Serum Glucose 94 mg/dL (74-106) Calcium Level 9.2 mg/dL (8.7-10.4) Total Bilirubin 1.0 mg/dL (0.2-1.0) Aspartate Amino Transferase (AST) 16 U/L (13-40) Alanine Aminotransferase (ALT) 10 U/L (7-40) Alkaline Phosphatase 63 U/L (46-116) Total Protein 6.8 g/dL (5.7-8.2) Albumin 3.9 g/dL (3.2-4.8) Troponin I High Sensitivity 5 ng/L (</=54) Triglycerides Level 76 mg/dL (< 150) Cholesterol Level 165 mg/dL (< 200) LDL Cholesterol 106 mg/dL (< 100) HDL Cholesterol 48 mg/dL (40-59) Other Laboratory Tests 01/14/25 07:28 Brief Hx & Hospital Course: Final diagnoses: Chronic asymptomatic lacunar infarct Headache due to head trauma Status post a fall Right eye blindness Right ankle swelling due to venous insufficiency 84-year-old male who was admitted due to a mechanical fall which resulted in head injury but no syncope CT scan of the head showed possible stroke and therefore an MRI was done which showed no new stroke but old one Lipid panel showed an LDL of 106 Cardiology evaluation included echocardiogram which is still pending Because of the edema in the legs we did a beta natriuretic peptide which was normal Chest x-ray was negative COVID and influenza were negative The patient is asymptomatic now therefore he will be discharged home Take aspirin 81 mg a day Lipitor 20 mg daily Follow up with the primary care physician as soon as possible Condition at Discharge: Stable Final Diagnosis/Problems List Chronic asymptomatic lacunar infarct Headache due to head trauma Status post a fall Right eye blindness Right ankle swelling most likely due to venous insufficiency Discharge Disposition: Home SNF Discharge Will this Physician continue t: No Discharge Instruct/Medications Diet: Cardiac 2g Na,low cholest Activity: No Restrictions, As Tolerated Follow Up/Referral: PCP as soon as possible Medications: Aspirin 81 mg a day Lipitor 20 mg daily Discharge Statement: "Patient was advised to return to the ER or call 911 if any headaches, dizziness, shortness of breath, chest pain, abdominal pain, bleeding, fevers, or worsening of medical condition. Patient was counseled about treatment plan, medications, possible side effects, patientverbalized understanding. All questions were answered to the best of my ability. This discharge took greater then 30 minutes in planning, reviewing documentation, counseling the patient, and discussing with other team members." ASSESSMENT ASSESSMENT Assessment Chronic asymptomatic lacunar infarct Headache due to head trauma Status post a fall Right eye blindness Right ankle swelling most likely due to venous insufficiency Date of Service: Jan 16, 2025 Billing Provider: KIMANI CHRISTIAN MD Common Visit Codes: NOT BILLABLE KIMANI CHRISTIAN MD Jan 16, 2025 09:31
[2025-01-16 11:53] VITALS: BP 111/60; PULSE 52; RESP 16; TEMP 97.4; O2SAT 95
[2025-01-16 12:47] VITALS: BP 143/82; PULSE 67; RESP 18; TEMP 97.7; O2SAT 98
--- NOTE | 2025-01-18 21:51 | DVHSR ---
APPROVED REPORT EXAM: Two-dimensional and M-mode echocardiogram with Doppler and color Doppler. Blood Pressure: 133/72 mmHg INDICATION Lacunar infarction RISK FACTORS Height: 5'3", Weight: 142 DIMENSIONS LVDd4.7 (3.8-5.7cm)LA (2D)4.3 (1.9-4.0cm)Aortic Root4.2 (2.0-3.7cm) LVDs3.1 (2.5-4.0cm)LA (MM) (1.9-4.0cm)Aortic Cusp Exc1.7 (1.5-2.0cm) EF (%) 63.0 (55-70%)Rt. Atrium (1.9-4.0cm)Asc. Aorta3.6 cm IVSd1.0 (0.7-1.1cm)RV (D) (1.8-2.4cm) PWd1.0 (0.7-1.1cm) Mitral Valve MitralMitral Stenosis E wave0.47m/sMV Mean GR.mmHg A wave0.85m/sMV Peak GR.mmHg E/A ratio0.62D MVAcm2 DECEL [id number] 1/2 Timems Aortic Valve Aortic ValveAortic Stenosis V10.93m/Alfredo Mean GR.9mmHg V21.92m/Alfredo Peak GR.15mmHg LVOT Diameter2.3 (1.8-2.4cm)Doppler AVA2.01cm2 AI P 1/2 Gwkb648.83ms Pulmonic Valve V20.81m/s Tricuspid Valve TR Velocity2.14m/s [id number] Other Information Quality : Technically LimitedRhythm : Technically limited study due to body habitus. Conclusion MILD LVH AND MILD LV DIASTOLIC DYSFUNCTION LV EF IS 65% AND IS NORMAL THICKENED AORTIC LEAFLETS AND IS AORTIC SCLEROSIS BUT NO STENOSIS MODERATE DEGREE AORTIC REGURGITATION NORMAL MV ,TV AND PV NO EFFUSION NORMAL RV FUNCTION AND SIZE
== END 2025-01-16 14:30 | disposition home or self-care (01) | DRG 914 ==
LOC: ER 10:21 → OVERFLOW 16:14 → TELE-WESTW 22:00
PROVIDERS: ADMIT Internal Medicine Geriatric Medicine; ATTEND Internal Medicine Geriatric Medicine
DX: S09.8XXA Other specified injuries of head, initial encounter (principal); H54.61 Unqualified visual loss, right eye, normal vision left eye; I45.10 Unspecified right bundle-branch block; H40.89 Other specified glaucoma; I87.2 Venous insufficiency (chronic) (peripheral); Z79.899 Other long term (current) drug therapy; Z86.73 Personal history of transient ischemic attack (TIA), and cerebral infarction without residual deficits; Z94.7 Corneal transplant status; W01.0XXA Fall on same level from slipping, tripping and stumbling without subsequent striking against object, initial encounter; Y93.01 Activity, walking, marching and hiking; Y92.89 Other specified places as the place of occurrence of the external cause; Y99.8 Other external cause status
CPT/HCPCS: 36415; 70450; 70551; 71045; 73610; 73630; 80053; 80061; 83880; 84443; 84484; 85025; 87426; 87804; 93005; 93306; 93886; 97110; 97116; 97163; 97530; G0378